=== PATIENT | male | born 1975 | race African-American/Black ===

== ENCOUNTER 2025-09-18 14:47 | Emergency (ER) | payer MEDICAID, OTHER ==
[~2025-09-18] VITALS: Ht 182.9 cm; Wt 72.6 kg
[2025-09-18] MEDS: IV LR 1000 ML 1,000 ML BAG IV ONE (15:42)
[2025-09-18 15:48] LABS: PLATELET COUNT (AUTO) 205 K/uL (150-450); RED BLOOD CELL COUNT(AUTO) 4.99 MIL/uL (4.5-6.0); RED CELL DISTRIBUTION WIDTH 14.5 % (11.5-15.0); WHITE BLOOD COUNT (AUTO) 7.1 K/uL (4.3-11.0)
[2025-09-18 16:00] LABS: CALCIUM, SERUM 9.4 mg/dL (8.5-10.1); CREATININE 1.0 mg/dL (0.6-1.3); SODIUM SERUM 137.0 mmol/L (136-145); UREA NITROGEN, BLOOD 10.0 mg/dL (7-18)
[2025-09-18 16:01] LABS: PHOSPHORUS 2.8 mg/dL (2.5-4.9)
[2025-09-18 16:06] LABS: ASPARTATE AMINOTRANSFERASE 16.0 U/L (15-37); TOTAL PROTEIN, SERUM 7.6 g/dL (6.4-8.2)
[2025-09-18 18:50] VITALS: BP 147/95; TEMP 97.8; O2SAT 98
== END 2025-09-18 18:47 | disposition home or self-care (01) ==
LOC: ER 14:47
DX: R19.7 Diarrhea, unspecified (principal); R10.30 Lower abdominal pain, unspecified
CPT/HCPCS: 99283; 96360; 85025; 80048; 80076; 83735; 84100; 36415; J7120 ×2

== ENCOUNTER 2025-09-21 10:16 | Emergency (ER) | payer OTHER ==
[~2025-09-21] VITALS: Ht 175.3 cm; Wt 72.6 kg
[2025-09-21 10:28] VITALS: TEMP 98.3
[2025-09-21 10:52] LABS: APPEARANCE,URINE CLEAR (CLEAR); BLOOD, URINE Moderate Ery/uL (NEGATIVE); LEUKOCYTE ESTERASE ,URINE Negative (NEGATIVE); NITRITE, URINE NEGATIVE (NEGATIVE); UGLUCOSE Negative (NEGATIVE)
[2025-09-21 10:55] LABS: PLATELET COUNT (AUTO) 212 K/uL (150-450); RED BLOOD CELL COUNT(AUTO) 4.92 MIL/uL (4.5-6.0); RED CELL DISTRIBUTION WIDTH 14.1 % (11.5-15.0); WHITE BLOOD COUNT (AUTO) 14.3 K/uL (4.3-11.0)
[2025-09-21] MEDS: IV NS 0.9% 1,000 ML BAG IV ONE (10:57)
[2025-09-21 11:01] LABS: ADD URINE CULTURE NO; SQUAMOUS EPITHELIAL CELL,UR 0-2 /HPF (None Seen)
[2025-09-21 11:02] LABS: CALCIUM, SERUM 8.7 mg/dL (8.5-10.1); CREATININE 1.2 mg/dL (0.6-1.3); SODIUM SERUM 133.0 mmol/L (136-145); UREA NITROGEN, BLOOD 8.0 mg/dL (7-18)
[2025-09-21 11:07] LABS: ASPARTATE AMINOTRANSFERASE 17.0 U/L (15-37); TOTAL PROTEIN, SERUM 6.9 g/dL (6.4-8.2)
[2025-09-21] MEDS ORDERED: CIPR500T5 PO (11:49)
[2025-09-21 12:43] VITALS: BP 130/85; O2SAT 98
[2025-09-21 12:58] LABS: LYMPHOCYTES % (MANUAL) 6 % (16-48); MONOCYTES % (MANUAL) 12 % (0-11.0); NEUTROPHILS % (MANUAL) 82 (42-76); PLATELET ESTIMATE ADEQUATE
[2025-09-23] MEDS ORDERED: VANC125C11 PO (10:03)
== END 2025-09-21 12:44 | disposition home or self-care (01) ==
LOC: ER 10:18
DX: R19.7 Diarrhea, unspecified (principal); R11.0 Nausea; B96.81 Helicobacter pylori [H. pylori] as the cause of diseases classified elsewhere; Z87.19 Personal history of other diseases of the digestive system
CPT/HCPCS: 99283; 96360; 85025; 80048; 83690; 80076; 81001; 36415; 85027; 85007; J7030